=== PATIENT | female | born 1995 | race Caucasian/White ===

== ENCOUNTER 2019-07-28 10:27 | Outpatient (CLI) | payer BC | END 2019-07-28 23:59 | disposition home or self-care (01) | LOC: RAD 10:27 | DX: R55 Syncope and collapse (principal) | CPT/HCPCS: 95819 ==

== ENCOUNTER 2021-09-19 05:35 | Emergency (ER) | payer BC, MEDICAID ==
[~2021-09-19] VITALS: Ht 154.9 cm; Wt 51.8 kg
[2021-09-19 06:42] LABS: CLARITY,URINE CLOUDY (Clear); COLOR,URINE RED (Yellow)
[2021-09-19 06:47] LABS: UA COLLECTION TYPE CLN CATCH MIDSTREAM
[2021-09-19 06:53] LABS: MUCUS STRANDS MANY /LPF (Neg); SQUAMOUS EPITHELIAL CELL,UR MODERATE /LPF (FEW)
[2021-09-19 06:54] LABS: RBC,URINE TNTC /HPF (0-2)
[2021-09-19 06:54] LABS: BASOPHILS % (AUTO) 0.3 % (0-1); EOSINOPHILS # (AUTO) 0.1 X10'3 (0-0.9); EOSINOPHILS % (AUTO) 0.9 % (0-6); HEMOGLOBIN 12.4 g/dl (12.0-16.0); LYMPHOCYTES # (AUTO) 1.5 X10'3 (1.1-4.8); LYMPHOCYTES % (AUTO) 17.8 % (21-51); MEAN CORPUSCULAR HEMOGLOBIN 29.5 PG (27.0-31.0); MEAN CORPUSCULAR HGB CONC 33.5 g/dL (33.0-36.5); MEAN CORPUSCULAR VOLUME 87.9 FL (78-98); MEAN PLATELET VOLUME 7.7 FL (7.4-10.4); MONOCYTES # (AUTO) 0.6 X10'3 (0-0.9); MONOCYTES % (AUTO) 7.4 % (2-12); NEUTROPHILS # (AUTO) 6.2 X10'3 (1.8-7.7); NEUTROPHILS % (AUTO) 73.6 % (42-75); PLATELET COUNT 289 X10'3 (140-440); RED BLOOD COUNT 4.21 X10'6 (4.20-5.60); RED CELL DISTRIBUTION WIDTH 12.9 % (11.5-14.5); WHITE BLOOD COUNT 8.5 X10'3 (4.5-11.0)
[2021-09-19 06:56] LABS: WBC,URINE 0-4 /HPF (0-4)
[2021-09-19 06:59] LABS: BACTERIA,URINE FEW /HPF (Neg)
[2021-09-19 07:00] LABS: CAL OXALATE CRYSTALS 3+ /HPF (NEGATIVE)
[2021-09-19 07:14] LABS: ALANINE AMINOTRANSFERASE 22 U/L (12-78); ALBUMIN 3.9 G/DL (3.4-5.0); ALBUMIN/GLOBULIN RATIO 1.3 (1.1-1.5); ALKALINE PHOSPHATASE 65 IU/L (46-116); ANION GAP 11 (8-16); ASPARTATE AMINO TRANSFERASE 17 U/L (10-37); BILIRUBIN,TOTAL 0.7 MG/DL (0.1-1.0); BLOOD UREA NITROGEN 10 MG/DL (7-18); BUN/CREATININE RATIO 19.2 (6.6-38.0); CALCIUM 8.8 MG/DL (8.5-10.1); CHLORIDE 104 MMOL/L (99-107); CREATININE 0.52 MG/DL (0.40-0.90); GLUCOSE 100 MG/DL (70-104); LIPASE 71 U/L (73-393); POTASSIUM 3.5 MMOL/L (3.5-5.1); SODIUM 140 MMOL/L (135-145); TOTAL CARBON DIOXIDE 24.9 MMOL/L (24-32); TOTAL PROTEIN 6.9 G/DL (6.4-8.2); eGFR > 90 ML/MIN
[2021-09-19] MEDS ORDERED: ketorolac trometh. 30mg/ml inj. IV ONE (07:45)
[2021-09-19] MEDS ORDERED: normal saline 1000ML IV soln IVB ONE (07:45)
[2021-09-19] MEDS ORDERED: tranexamic acid 1gm/0.7% sal. 100 ML IV ONE (07:45)
[2021-09-19 08:06] LABS: URINE HCG POSITIVE (NEG)
[2021-09-19 09:17] LABS: BETA HCG,QUANTITATIVE 669 mIU/ml
[2021-09-19] MEDS ORDERED: TRAN650T2 PO (09:48)
[2021-09-19] MEDS ORDERED: [UNRECOGNIZED DRUG - CODE] PO (10:17)
[2021-09-19 10:46] VITALS: BP 90/60
== END 2021-09-19 10:48 | disposition home or self-care (01) ==
LOC: ER 05:36
DX: O46.8X1 Other antepartum hemorrhage, first trimester (principal); N93.9 Abnormal uterine and vaginal bleeding, unspecified; R00.2 Palpitations; R42 Dizziness and giddiness; R07.89 Other chest pain; Z3A.00 Weeks of gestation of pregnancy not specified; Z88.8 Allergy status to other drugs, medicaments and biological substances; Z79.899 Other long term (current) drug therapy
CPT/HCPCS: 36415; 76801; 80053; 81001; 81025; 83690; 84702; 85025; 96365; 96375; 99284; J1885; J3490; J7030